=== PATIENT | female | born 1945 | race Caucasian/White ===

== ENCOUNTER 2024-10-09 09:31 | Emergency (ER) | payer MEDICARE, MEDICAID, SELFPAY ==
[2024-10-09 10:10] VITALS: BP 191/82; PULSE 76; RESP 18; TEMP 37; O2SAT 95; BMI 27.5
--- NOTE | 2024-10-09 10:17 | XR_ITS ---
Examination: CT maxillofacial, without intravenous contrast. 2-D sagittal reconstructions. 3-D reconstructions. Date and time of exam:October 09, 2019 5:11 AM INDICATIONS: Patient fell this morning with injury to the face, facial pain and bruising CTDI: vol (mGy):16.4 DLP: (mGycm):288 Technique: Multiple axial images of maxillofacial region, 3.0 mm slice thickness. 2-D sagittal and coronal reconstructions. 3-D reconstructions. Low dose protocols were performed. One or more of the following dose reduction techniques were used; automated exposure control, adjustment of the mA and/or KV according to patient size, use of iterative reconstruction technique. Findings: Soft tissue for head scalp swelling Frontal bone intact No acute nasal bone fracture No acute orbital rim fracture No depression zygomatic arches Pterygoid plates maxilla and the mandible intact IMPRESSION: No acute facial fracture.
--- NOTE | 2024-10-09 10:17 | XR_ITS ---
Examination: CT cervical spine without contrast 2-D sagittal reconstructions 2-D coronal reconstructions 3-D reconstructions. Exam date and time:October 09, 2019 5:11 AM INDICATIONS: Patient fell this morning with injury to the neck, neck pain CTDI:vol (mGy) 14.2 DLP: (mGycm) 321 Technique: Multiple 2 mm axial sections of the cervical spine have been obtained. The coronal and sagittal reconstructions have been obtained. 3-D reconstructions have been obtained. Low dose protocols were performed. One or more of the following dose reduction techniques were used; automated exposure control, adjustment of the mA and/or KV according to patient size, use of iterative reconstruction technique. Findings: Axial sections demonstrate intact base of the skull. C1 exhibit satisfactory relationship to the odontoid. No acute cervical vertebral body fracture seen. Alignment posterior spinous processes satisfactory. Impression: No acute cervical fracture.
--- NOTE | 2024-10-09 10:17 | XR_ITS ---
Examination: CT brain head without contrast. 2-D sagittal coronal reconstructions Date and time of exam:October 09, 2019 5:11 AM INDICATIONS: Patient fell this morning with injury to the head, head pain CTDI: vol (mGy):49.7 DLP: (mGycm):1039 Technique: Multiple CT axial sections of the brain have been obtained, 5 mm slice thickness. Contrast has not been administered. 2-D sagittal, coronal reconstructions have been obtained Low dose protocols were performed. One or more of the following dose reduction techniques were used; automated exposure control, adjustment of the mA and/or KV according to patient size, use of iterative reconstruction technique. Findings: No significant ventricular enlargement. Intra-axial or extra-axial hemorrhage density is not seen. No mass effect or midline shift Basal cisterns are not remarkable. Fourth ventricle is midline. Cranial vault intact. Impression: Negative for acute hemorrhage, mass effect or midline shift
--- NOTE | 2024-10-09 10:18 | PD.EDFALL ---
ED Fall Injury RME/HPI General Chief Complaint: Fall Stated Complaint: FACIAL TRAUMA Time Seen by Provider: 10/09/24 10:19 Source: patient Arrival date/time: 10/09/24 09:31 79-year-old female with a history of hyperlipidemia, hypothyroidism, hypertension presents to the emergency room with a chief complaint of a headache, neck pain, facial bruising and pain after a fall that occurred last night around 11 PM. Patient states she was going down her steps tripped and hit her head on pavement. Mode of arrival: ambulatory Limitations: no limitations Related Data Home Medications ?Medication ?Instructions ?Recorded ?Confirmed allopurinol 300 mg tablet 300 mg PO QDAY 09/14/23 01/28/24 atorvastatin 10 mg tablet 10 mg PO QDAY 09/14/23 01/28/24 levothyroxine 13 mcg capsule 13 mcg PO QDAY 09/14/23 01/28/24 losartan 100 mg tablet 100 mg PO QDAY 09/14/23 01/28/24 nadolol 20 mg tablet 20 mg PO QDAY 09/14/23 01/28/24 Previous Rx's ?Medication ?Instructions ?Recorded meloxicam 7.5 mg tablet 7.5 mg PO BID #45 tabs 09/14/23 Allergies Allergy/AdvReac Type Severity Reaction Status Date / Time No Known Allergies Allergy Verified 11/05/23 13:37 Review of Systems Review of Systems Systems Reviewed: All systems reviewed, normal except as documented Constitutional Constitutional: Reports system reviewed and no additional complaints, except as documented, Denies fatigue, Denies fever(s), Reports headache(s) and Denies weakness Eyes Eyes: Reports system reviewed and no additional complaints, except as documented, Denies blurry vision and Denies change in vision ENT Ears, Nose, Mouth, and Throat: Reports system reviewed and no additional complaints, except as documented, Denies otalgia, Reports headache(s), Denies nasal congestion, Reports neck pain, Denies throat swelling and Denies vertigo Cardiovascular Cardiovascular: Reports system reviewed and no additional complaints, except as documented, Denies chest pain, Denies dyspnea and Denies dyspnea on exertion Respiratory Respiratory: Reports system reviewed and no additional complaints, except as documented, Denies chest congestion, Denies cough, Denies dyspnea, Denies dyspnea on exertion and Denies wheezing Gastrointestinal Gastrointestinal: Reports system reviewed and no additional complaints, except as documented, Denies abdominal pain, Denies cramping, Denies nausea and Denies vomiting Genitourinary Genitourinary: Reports system reviewed and no additional complaints, except as documented Musculoskeletal Musculoskeletal: Reports system reviewed and no additional complaints, except as documented, Denies back pain and Reports neck pain Integumentary/Breasts Skin/Breast: Reports system reviewed and no additional complaints, except as documented and Denies wounds Neurologic Neurologic: Reports system reviewed and no additional complaints, except as documented, Denies confusion, Reports headache(s), Denies lack of coordination, Denies vertigo and Denies weakness Psychiatric Psychiatric: Reports system reviewed and no additional complaints, except as documented, Denies anxiety, Denies confusion, Denies depression, Denies paranoia, Denies suicidal ideation and Denies tactile hallucinations Endocrine Endocrine: Reports system reviewed and no additional complaints, except as documented and Denies fatigue Hematologic/Lymphatic Hematologic/Lymphatic: Reports system reviewed and no additional complaints, except as documented and Denies lymphadenopathy Allergic/Immunologic Allergic/Immunologic: Reports system reviewed and no additional complaints, except as documented, Denies throat swelling, Denies urticaria and Denies wheezing Past Medical History Social History SMOKING STATUS: Never smoker ED Exam General Limitations: Present no limitations General appearance: Present alert and in no apparent distress Head Head exam: Present atraumatic and normocephalic Expanded Head Exam Head exam physical: Present abrasion and contusion; Absent laceration, hematoma, raccoon eyes, Whipple's sign, tenderness of temporal artery, CSF rhinorrhea or CSF otorrhea Head image: 1. Facial contusion and bruising. Eye Eye exam: Present normal appearance, PERRL and EOMI ENT ENT exam: Present normal exam, normal oropharynx and mucous membranes moist Neck Neck exam: Present normal inspection, full ROM and trachea midline Chest Chest inspection: Present normal inspection and symmetric chest wall rise Respiratory Respiratory exam: Present normal lung sounds bilaterally Cardiovascular Cardiovascular exam: Present regular rate, normal rhythm and normal heart sounds Abdominal Exam Abdominal exam: Present soft and normal bowel sounds Extremities Exam Extremities exam: Present normal inspection and full ROM Back Exam Back exam: Present normal inspection and full ROM Neurological Exam Neurological exam: Present alert, oriented X3 and CN II-XII intact Psychiatric Psychiatric exam: Present normal affect and normal mood Skin Skin exam: Present warm, dry, intact and normal color Course Quality Measures none Orders Category Date Time Status CT cervical spine wo con Stat Exams 01/06/25 10:[address] facial bones wo con Stat Exams 10/09/24 10:[address] head/brain wo con Stat Exams 10/09/24 10:17 Completed Vital Signs Vital signs: Vital Signs Temperature 98.6 F 10/09/24 10:10 Pulse Rate 76 10/09/24 10:10 Respiratory Rate 18 10/09/24 10:10 Blood Pressure 191/82 H 10/09/24 10:10 Pulse Oximetry (%) 95 10/09/24 10:10 Oxygen Delivery Method Room Air 10/09/24 10:10 O2 saturation 95% within normal limits Fall MDM Narrative MDM Narrative:: 79-year-old female with a history of hyperlipidemia, hypothyroidism, hypertension presents to the emergency room with a chief complaint of a headache, neck pain, facial bruising and pain after a fall that occurred last night around 11 PM. Patient states she was going down her steps tripped and hit her head on pavement. Clinically the patient appears nontoxic and in no apparent distress. Physical examination shows a normal neurological exam. The patient is a GCS of 15 alert and oriented x 4. Pupils are PERRLA EOMs are intact patient states this occurred last night around 11 PM. Patient was able to ambulate and there is no dizziness or lightheadedness. Patient is complaining of pain and tenderness to her forehead as well as neck. CT of the head and brain were completed and was negative for acute hemorrhage mass effect or midline shift. Cervical CT was negative for acute fractures. Facial CT was negative for any fractures of the facial bones. Patient was discharged and educated to return to the emergency room for any evidence of worsening signs or symptoms patient was educated to follow-up with primary care provider in the next 24 to 48 hours Patient data External records reviewed:: [facility] previous records Clinical information provided by:: patient Social determinants that could affect healthcare access:: none Patient has the following chronic illnesses:: Hyperlipidemia, hypothyroidism, hypertension How is presenting disease/condition affected by chronic disease/condition?: uneffected by Evaluation data The following diagnostics were reviewed and interpreted by me:: lab results and radiology exam(s) Lab and/or radiology exams considered but not ordered:: Labs and radiology exams considered and ordered Interpretation Summary: CT head and brain-no acute hemorrhage mass effect or midline shift CT cervical-no acute cervical fracture. CT facial bones, no acute fractures Medications / Prescriptions Medications or Prescriptions considered but not ordered:: No medication given Medication administrations:: No medication given Consultations Consultation(s) initiated? (list below): No Diagnosis Fall Differential Diagnosis: concussion with loss of consciousness, concussion without loss of consciousness and other (Facial contusions/subarachnoid hemorrhage/facial bone fracture) Most likely diagnosis given after review of the tests above:: Facial contusions Admission Indicated Admission indicated?: not indicated Admission Request Was there a request for admission?: No Disposition Plan Disposition Plan: Discharge Discharge Attestation Discharge Attestation: The patient and all family members were given an opportunity to ask questions and understood the discharge instructions. Discharge instructions specifically effects, indications for sooner follow up or return to the emergency department, and the expected course of current diagnosis. Patient condition: Stable Discharge Plan Plan Patient Disposition: HOME (Self Care) Disposition Comment: Stable Prescriptions/Referrals Prescriptions/Med Rec: No Action atorvastatin 10 mg tablet 10 mg PO QDAY losartan 100 mg tablet 100 mg PO QDAY levothyroxine 13 mcg capsule 13 mcg PO QDAY allopurinol 300 mg tablet 300 mg PO QDAY nadolol 20 mg tablet 20 mg PO QDAY meloxicam 7.5 mg tablet 7.5 mg PO BID Qty: 45 3RF Referrals: July Walker MD [Primary Care Provider] - In 1 week Problem List Clinical Impression: Facial trauma Patient/Caregiver Discharge Instructions Additional Instructions: Please follow-up with your primary care provider in the next [address] of your head/brain, neck, and facial bones were all negative for any acute findings. For any evidence of worsening signs or symptoms please return to the emergency room immediately Print Language: Uzbek Stand Alone Forms: [facility] Award Info., Patient Portal Info Letter PA/FINANCIAL PLANNING ANALYST Supervising Physician PA/RHIANNON Supervising Physician: Dr Contreras
== END 2024-10-09 11:45 | disposition home or self-care (01) ==
PROVIDERS: Emergency Provider Emergency Medicine; PCP Family Medicine
DX: S00.83XA Contusion of other part of head, initial encounter (principal); S19.9XXA Unspecified injury of neck, initial encounter; S09.90XA Unspecified injury of head, initial encounter; W10.9XXA Fall (on) (from) unspecified stairs and steps, initial encounter; Y92.480 Sidewalk as the place of occurrence of the external cause
CPT/HCPCS: 70450; 70486; 72125; 99284

== ENCOUNTER → 2024-11-13 | Outpatient (CLI) | payer MEDICARE, MEDICAID, SELFPAY ==
[2024-11-13 12:15] LABS: Collection Type, Urine Clean Catch
[2024-11-13 13:21] LABS: Basophils # (Auto) 0.1 Thou/mm3 (0.0-0.2); Basophils % (Auto) 1 % (0-2.5); Eosinophils # (Auto) 0.2 Thou/mm3 (0.0-0.5); Eosinophils % (Auto) 3 % (0-10); Hemoglobin 13.7 g/dL (12.0-16.0); Immature Granulocytes % (Auto) 0 % (0-0); Immature Granulocytes Auto 0.02 Thou/mm3 (0.00-0.00); Lymphocytes # (Auto) 1.7 Thou/mm3 (1.0-4.8); Lymphocytes % (Auto) 24 % (10-50); Mean Corpuscular Hemoglobin 34.7 pg (25.0-35.0); Mean Corpuscular Volume 94 fL (80-100); Monocytes # (Auto) 0.4 Thou/mm3 (0.0-0.8); Monocytes % (Auto) 6 % (0-12); Neutrophils # (Auto) 4.7 Thou/mm3 (1.8-7.7); Neutrophils % (Auto) 66 % (37-80); Nucleated Red Blood Cell % 0 /100 WBC (0); Platelet Count 250 Thou/mm3 (140-440); RDW Standard Deviation 46.3 fL (36.4-46.3); Red Blood Count 3.95 Miln/mm3 (4.00-5.20); White Blood Count 7.1 Thou/mm3 (3.6-11.0)
[2024-11-13 13:22] LABS: Bilirubin,Urine Negative (Negative); Blood,Urine Negative (Negative); Clarity,Urine Clear (Clear/Hazy); Color,Urine Lt-Yellow (Lt Yel-Yel); Glucose, Urine Negative (Negative); Ketones,Urine Negative (Negative); Leukocyte Esterase,Urine Negative (Negative); Nitrite,Urine Negative (Negative); PH,Urine 5.5 (5.0-7.0); Protein,Urine Negative (Neg - Trace); RBC,Urine 1 /hpf (0-3); Specific Gravity,Urine 1.016 (1.001-1.035); Squamous Epithelial Cell,Urine 1 /hpf (0-5); Urobilinogen,Urine Negative mg/dL (0.0-1.0); WBC,Urine 1 /hpf (0-5)
[2024-11-13 13:30] LABS: Alanine Aminotransferase 18 U/L (10-49); Albumin, Serum 4.6 gm/dL (3.4-4.8); Albumin/Globulin Ratio 1.9 (1.2-2.2); Alkaline Phosphatase 118 U/L (46-116); Anion Gap 4 (7-16); Aspartate Amino Transferase 22 U/L (0-34); BUN/Creatinine Ratio 19 Ratio (12-20); Bilirubin,Total 0.4 mg/dL (0.3-1.2); Blood Urea Nitrogen 17 mg/dL (9-23); Calcium 9.5 mg/dL (8.3-10.6); Calcium (Corrected) 9.5 mg/dL (8.5-10.1); Carbon Dioxide 27.7 mMol/L (20.0-31.0); Chloride 110 mMol/L (98-107); Cholesterol 182 mg/dL (132-200); Creatinine (Component) 0.9 mg/dL (0.6-1.3); Free T4 (Free Thyroxine) 1.18 ng/dL (0.89-1.76); Globulin 2.4 gm/dL (2.3-3.5); Glucose 89 mg/dL (74-106); HDL Cholesterol 60 mg/dL (40-60); LDL Cholesterol,Calculated 82 mg/dL (0-130); Osmolality,Calculated 283 (275-295); Potassium 4.6 mMol/L (3.4-5.1); Sodium 142 mMol/L (136-145); Thyroid Stimulating Hormone 1.58 uIU/mL (0.55-4.78); Triglycerides 198 mg/dL (30-150); eGFR > 60 See Note
== END | disposition home or self-care (01) ==
PROVIDERS: PCP Family Medicine; Referring Provider Family Medicine; Visit Provider Family Medicine
DX: I10 Essential (primary) hypertension (principal); E03.9 Hypothyroidism, unspecified
CPT/HCPCS: 36415; 80053; 80061; 81001; 84439; 84443; 85025

== ENCOUNTER 2025-01-07 11:37 | Emergency (ER) | payer OTHER, MEDICAID, SELFPAY ==
[2025-01-07] VITALS (8 sets, daily range): BP systolic 165–200; BP diastolic 67–95; PULSE 64–82; RESP 18–30; TEMP 37.2–38.8; O2SAT 94–95; BMI 27.5
--- NOTE | 2025-01-07 12:04 | EDRME_ITS ---
Rapid Medical Screening Exam [facility] Arrival date/time: 01/07/25 11:37 79-year-old female with a history of hyperlipidemia presents to the emergency room with a chief complaint of a sore throat, body aches, and frequent falls. Patient states she has had multiple falls in the last month. Patient states her last fall was 1 week ago and states she hit her head on concrete but did not come to the emergency room to get checked out. I have greeted and performed a focused initial assessment of this patient. A comprehensive ED assessment and evaluation of the patient, analysis of all test results, and completion of the medical decision making process will be conducted by additional ED providers. Chief Complaint: Fall Time Seen by Provider: 01/07/25 11:54 Vital signs: Vital Signs Temperature 99.6 F 01/07/25 11:50 Pulse Rate 82 01/07/25 11:50 Respiratory Rate 20 01/07/25 11:50 Blood Pressure 184/77 H 01/07/25 11:50 Pulse Oximetry (%) 95 01/07/25 11:50 Oxygen Delivery Method Room Air 01/07/25 11:50 Vital signs reviewed by provider: Yes
--- NOTE | 2025-01-07 12:10 | EKG_ITS ---
[facility] Test Date: 2025-01-07 Pat Name: JUAN LIM Department: Room: - Gender: Female Commissioned Police Officer: : 1945 Requested By: Walter Patrick Order Number: [id number] Reading MD: Walter Patrick Measurements Intervals [place] Rate: 85 P: 35 OR: 156 QRS: -37 QRSD: 84 T: 56 QT: 333 QTc: 397 Interpretive Statements SINUS RHYTHM LEFT AXIS DEVIATION [QRS AXIS < -30] POSSIBLE ANTERIOR MYOCARDIAL INFARCTION , PROBABLY OLD [30 ms Q WAVE IN V3/V4, OR R < 0.2 mV IN V4] No previous ECG available for comparison /store/[email or web address]/[id number].pdf
--- NOTE | 2025-01-07 12:10 | XR_ITS ---
Examination: CT brain head without contrast. 2-D sagittal coronal reconstructions Date and time of exam:January 07, 2025 1241 hrs. Indications: Frequent falls the last month with head pain CTDI: vol (mGy):48.4 DLP: (mGycm):1027 Technique: Multiple CT axial sections of the brain have been obtained, 5 mm slice thickness. Contrast has not been administered. 2-D sagittal, coronal reconstructions have been obtained Low dose protocols were performed. One or more of the following dose reduction techniques were used; automated exposure control, adjustment of the mA and/or KV according to patient size, use of iterative reconstruction technique. Findings: No significant ventricular enlargement. Intra-axial or extra-axial hemorrhage density is not seen. No mass effect or midline shift Basal cisterns are not remarkable. Fourth ventricle is midline. Cranial vault intact. Impression: Negative for acute hemorrhage, mass effect or midline shift
[2025-01-07 12:26] LABS: Basophils % (Auto) 0 % (0-2.5); Eosinophils # (Auto) 0.1 Thou/mm3 (0.0-0.5); Eosinophils % (Auto) 1 % (0-10); Hematocrit 38.9 % (36.0-46.0); Hemoglobin 13.8 g/dL (12.0-16.0); Immature Granulocytes % (Auto) 0 % (0-0); Immature Granulocytes Auto 0.02 Thou/mm3 (0.00-0.00); Lymphocytes % (Auto) 11 % (10-50); Mean Corpuscular HGB Conc 35.5 g/dl (31.0-37.0); Mean Corpuscular Hemoglobin 31.8 pg (25.0-35.0); Mean Corpuscular Volume 90 fL (80-100); Monocytes # (Auto) 0.9 Thou/mm3 (0.0-0.8); Monocytes % (Auto) 10 % (0-12); Neutrophils # (Auto) 7.2 Thou/mm3 (1.8-7.7); Neutrophils % (Auto) 78 % (37-80); Nucleated Red Blood Cell % 0 /100 WBC (0); Platelet Count 188 Thou/mm3 (140-440); RDW Standard Deviation 45.6 fL (36.4-46.3); Red Blood Count 4.34 Miln/mm3 (4.00-5.20); White Blood Count 9.2 Thou/mm3 (3.6-11.0)
[2025-01-07 12:35] LABS: Strep A Rapid Negative (Negative)
[2025-01-07 12:45] LABS: B-Type Natriuretic Peptide 35 pg/mL (0-100)
[2025-01-07 12:46] LABS: Alanine Aminotransferase 21 U/L (10-49); Albumin, Serum 4.5 gm/dL (3.4-4.8); Albumin/Globulin Ratio 1.7 (1.2-2.2); Alkaline Phosphatase 115 U/L (46-116); Anion Gap 8 (7-16); Aspartate Amino Transferase 25 U/L (0-34); BUN/Creatinine Ratio 14 Ratio (12-20); Bilirubin,Total 0.4 mg/dL (0.3-1.2); Blood Urea Nitrogen 13 mg/dL (9-23); Calcium 9.4 mg/dL (8.3-10.6); Calcium (Corrected) 9.4 mg/dL (8.5-10.1); Carbon Dioxide 26.5 mMol/L (20.0-31.0); Chloride 106 mMol/L (98-107); Creatinine (Component) 0.9 mg/dL (0.6-1.3); Globulin 2.7 gm/dL (2.3-3.5); Glucose 105 mg/dL (74-106); Magnesium 1.7 mg/dL (1.6-2.6); Osmolality,Calculated 279 (275-295); Potassium 4.1 mMol/L (3.4-5.1); Sodium 140 mMol/L (136-145); Total Protein 7.2 gm/dL (5.7-8.2); Troponin I < 0.020 ng/mL (0.0-0.045); eGFR > 60 See Note
--- NOTE | 2025-01-07 14:10 | PD.EDADULT ---
ED General RME/HPI General Chief complaint: Fall Stated complaint: FREQUENT FALLS HEAD PAIN Time Seen by Provider: 01/07/25 11:54 Arrival date/time: 01/07/25 11:37 CC: Get checked out HPI patient states she has had 4 falls in the last several months the last fall was approximately 1 week ago. The patient is now here stating that she wants to check out her eye bone while pointing to her left thigh. Patient denies LOC or LOC. The patient denies smoking, alcohol, street drugs. Patient states Dr Hodge is her PCP. Patient is mildly confused stating that she had 2 falls in the last several months and then again states that she has had 4 falls in the last several months. Patient is clear that all falls of taken place on the paved walkway or the stairs in her house. Patient denies any LOC or ALOC. Currently the patient has no chest pain no shortness of breath no difficulty breathing. RME / HPI RME / HPI narrative: 01/07/25 11:37 79-year-old female with a history of hyperlipidemia presents to the emergency room with a chief complaint of a sore throat, body aches, and frequent falls. Patient states she has had multiple falls in the last month. Patient states her last fall was 1 week ago and states she hit her head on concrete but did not come to the emergency room to get checked out. I have greeted and performed a focused initial assessment of this patient. A comprehensive ED assessment and evaluation of the patient, analysis of all test results, and completion of the medical decision making process will be conducted by additional ED providers. Related Data Home Medications ?Medication ?Instructions ?Recorded ?Confirmed allopurinol 300 mg tablet 300 mg PO QDAY 09/14/23 01/28/24 atorvastatin 10 mg tablet 10 mg PO QDAY 09/14/23 01/28/24 levothyroxine 13 mcg capsule 13 mcg PO QDAY 09/14/23 01/28/24 losartan 100 mg tablet 100 mg PO QDAY 09/14/23 01/28/24 nadolol 20 mg tablet 20 mg PO QDAY 09/14/23 01/28/24 Previous Rx's ?Medication ?Instructions ?Recorded meloxicam 7.5 mg tablet 7.5 mg PO BID #45 tabs 09/14/23 Allergies Allergy/AdvReac Type Severity Reaction Status Date / Time Sulfa (Sulfonamide Allergy Mild Hives Verified 01/07/25 11:41 Antibiotics) Review of Systems Review of Systems Narrative Review of Systems: GEN: No fever, no chills, no weight loss EYES: No discharge, no visual changes, no pain HEENT: No ear pain, no congestion, no sore throat PULM: No shortness of breath, no cough, no congestion CV: No chest pain, no dyspnea on exertion, no palpitations GI: No nausea, no vomiting, no diarrhea, no pain, no constipation : No frequency, no urgency, no dysuria MUSC/SKEL: No joint pain, no back pain SKIN: No rash PSYCH: No hallucinations, no depression HEME/LYMPH: No easy bleeding or bruising tendencies NEURO: No weakness, no headache Past Medical History Social History SMOKING STATUS: Never smoker ED Exam Narrative Physical exam: [General: Not in any acute distress Head normocephalic, no step-offs hematoma induration ulceration crepitus ecchymosis or depressions. HEENT: Eyes pupils are PERRLA EOMs are intact mouth pink moist membranes uvula is midline swallow symmetrical phonation is normal. Nose no rhinorrhea, no raccoon's eyes or hutson signs. All other subsystems of HEENT are within acceptable limits Neck is supple nontender, no JVD Chest equal chest rise nontender to palpation Respiratory: Clear to auscultation no wheezes crackles or rubs CV: Rate rhythm is regular no murmurs rubs or clicks Abdomen is soft nontender no masses positive bowel sounds all 4 quadrants Back: No CVA tenderness no spinous process tenderness from cervical spine thoracic and lumbar spine Skin: Intact no petechiae rash induration ulceration or crepitus Extremities: Moving all extremity against resistance cap refill less than 2 seconds neurosensory intact Neuro: Awake alert oriented x2, person and place, Glascow coma 15 no focal deficits] Course Course Course Narrative: At 1514 patient got new vital signs which included a fever of 101.3. At this time we will determine if she has influenza A if not we will initiate sepsis protocol. Quality Measures none Orders Category Date Time Status Bedside COVID-19 Antigen Test NOW Care 01/07/25 12:03 Active Bedside Influenza A&B Antigen Test NOW Care 01/07/25 12:03 Completed Bedside Influenza A&B Antigen Test NOW Care 01/07/25 15:15 Completed EKG (ED ONLY) *Do not use* NOW Care 01/07/25 12:[address] head/brain wo con Stat Exams 01/07/25 12:10 Completed EKG (ED Only) Stat Exams 01/07/25 12:10 Draft B-Type Natriuretic Peptide Stat Lab 01/07/25 12:19 Completed CBC Stat Lab 01/07/25 12:19 Completed Comprehensive Metabolic Panel Stat Lab 01/07/25 12:19 Completed Drug Screen,Urine Stat Lab 01/07/25 14:29 Completed Free T4 (Free Thyroxine) Stat Lab 01/07/25 12:19 Completed Lactic Acid [Lactate (Lactic Acid)] Stat Lab 01/07/25 15:32 Completed Magnesium Stat Lab 01/07/25 12:19 Completed Procalcitonin Stat Lab 01/07/25 15:32 Completed Strep A Rapid Stat Lab 01/07/25 12:19 Completed Thyroid Stimulating Hormone Stat Lab 01/07/25 12:19 Completed Troponin I Stat Lab 01/07/25 12:19 Completed Urinalysis Stat Lab 01/07/25 14:29 Completed Acetaminophen Tab [Tylenol Tab] Med 01/07/25 15:15 Discontinued 650 mg PO X1 ONE hydrALAZINE INJ [Apresoline Inj] Med 01/07/25 15:38 Discontinued 20 mg IV X1 ONE Vital Signs Vital signs: Vital Signs Temperature 99.6 F 01/07/25 11:50 Pulse Rate 82 01/07/25 11:50 Respiratory Rate 20 01/07/25 11:50 Blood Pressure 184/77 H 01/07/25 11:50 Pulse Oximetry (%) 95 01/07/25 11:50 Oxygen Delivery Method Room Air 01/07/25 11:50 [facility] Patient data External records reviewed:: [facility] previous records Clinical information provided by:: patient Social determinants that could affect healthcare access:: none Patient has the following chronic illnesses:: Hypothyroidism hyperlipidemia How is presenting disease/condition affected by chronic disease/condition?: uneffected by Evaluation data The following diagnostics were reviewed and interpreted by me:: lab results, radiology exam(s) and EKG tracing(s) Lab and/or radiology exams considered but not ordered:: EKG performed at 1216 shows ventricular rate of 85 IN interval 156 QRS of 8 4 QTc of 375 this is normal sinus rhythm left axis deviation no significant ST depression or elevation. CBC shows no acute leukocytosis anemia thrombocytopenia CMP shows no acute electrolyte imbalances renal impairment transaminitis or T. bili elevation Troponin is negative BNP is negative Strep is negative Free T4, TSH are unremarkable Patient is influenza A and B positive. Procalcitonin is within acceptable limits. Interpretation Summary: Patient's labs are essentially unremarkable the patient is mildly confused half correcting herself and a half not I am concerned that the patient may be developing age-related neurologic issues that have as of yet not been diagnosed. There is no acute evidence of trauma. Reviewed the vital signs showed the patient has remained stable throughout her visit the emergency room and there is been no deterioration in neurologic status. Patient has been observed multiple times walking in the hallways of the ER while going to and from restroom etc. Medications Medications considered but not ordered:: None none Medication administrations:: Medication Administration History Discontinued Medications Acetaminophen (Acetaminophen 325 Mg Tablet) 650 mg PO X1 ONE Stop: 01/07/25 15:16 Last Admin: 01/07/25 15:21 Dose: 650 mg Documented By: ELBERT Hydralazine HCl (Hydralazine Inj 20 Mg/Ml Vial) 20 mg IV X1 ONE Stop: 01/07/25 15:39 Last Admin: 01/07/25 16:07 Dose: Not Given Documented By: ELBERT Non-Admin Reason: Discontinued None Consultations Consultation(s) initiated? (list below): No Diagnosis Differential Diagnosis ED Complaint MDM: Intracranial hemorrhage electrolyte imbalances dehydration Most likely diagnosis given after review of the tests above:: Influenza A and B recurrent falls Admission Indicated Admission indicated?: not indicated Explain why admission is indicated or not indicated:: Stable for outpatient follow-up Admission Request Was there a request for admission?: No Disposition Plan Disposition Plan: Discharge Discharge Attestation Discharge Attestation: The patient and all family members were given an opportunity to ask questions and understood the discharge instructions. Discharge instructions specifically effects, indications for sooner follow up or return to the emergency department, and the expected course of current diagnosis. Patient condition: Stable Medical Decision Making Differential Diagnosis Differential Diagnosis: Intracranial hemorrhage electrolyte imbalances dehydration Lab Data 01/07/25 12:19 01/07/25 12:19 Labs: Lab Results 01/07/25 01/07/25 01/07/25 Range/Units 12:19 14:29 15:32 WBC 9.2 (3.6-11.0) Thou/mm3 RBC 4.34 (4.00-5.20) Miln/mm3 Hgb 13.8 (12.0-16.0) g/dL Hct 38.9 (36.0-46.0) % MCV 90 (80-100) fL MCH 31.8 (25.0-35.0) pg MCHC 35.5 (31.0-37.0) g/dl RDW Std Deviation 45.6 (36.4-46.3) fL Plt Count 188 (140-440) Thou/mm3 Neut % (Auto) 78 (37-80) % Lymph % (Auto) 11 (10-50) % [place] % (Auto) 10 (0-12) % Eos % (Auto) 1 (0-10) % Baso % (Auto) 0 (0-2.5) % Neut # (Auto) 7.2 (1.8-7.7) Thou/mm3 Lymph # (Auto) 1.0 (1.0-4.8) Thou/mm3 [place] # (Auto) 0.9 H (0.0-0.8) Thou/mm3 Eos # (Auto) 0.1 (0.0-0.5) Thou/mm3 Baso # (Auto) 0.0 (0.0-0.2) Thou/mm3 Immature Gran # (Auto) 0.02 H (0.00-0.00) Thou/mm3 Absolute Nucleated RBC 0.00 (0.00-0.00) Thou/mm3 Immature Gran % 0 (0-0) % Nucleated RBC % 0 (0) /100 WBC Sodium 140 (136-145) mMol/L Potassium 4.1 (3.4-5.1) mMol/L Chloride 106 (98-107) mMol/L Carbon Dioxide 26.5 (20.0-31.0) mMol/L Anion Gap 8 (7-16) BUN 13 (9-23) mg/dL Creatinine 0.9 (0.6-1.3) mg/dL Estim Creat Clear Calc 55.0 L (>60) mL/min eGFR > 60 (60 - ) See Note BUN/Creatinine Ratio 14 (12-20) Ratio Glucose 105 (74-106) mg/dL Calculated Osmolality 279 (275-295) Lactic Acid 0.7 (0.4-2.0) mMol/L Calcium 9.4 (8.3-10.6) mg/dL Corrected Calcium 9.4 (8.5-10.1) mg/dL Magnesium 1.7 (1.6-2.6) mg/dL Total Bilirubin 0.4 (0.3-1.2) mg/dL AST 25 (0-34) U/L ALT 21 (10-49) U/L Alkaline Phosphatase 115 (46-116) U/L Troponin I < 0.020 (0.0-0.045) ng/mL B-Natriuretic Peptide 35 (0-100) pg/mL Total Protein 7.2 (5.7-8.2) gm/dL Albumin 4.5 (3.4-4.8) gm/dL Globulin 2.7 (2.3-3.5) gm/dL Albumin/Globulin Ratio 1.7 (1.2-2.2) Procalcitonin 0.06 (0.0-0.49) ng/ml TSH 1.61 (0.55-4.78) uIU/mL Free T4 1.22 (0.89-1.76) ng/dL Ur Collection Type Clean Catch Urine Color Yellow (Lt Yel-Yel) Urine Clarity Turbid A (Clear/Hazy) Urine pH 6.5 (5.0-7.0) Ur Specific [place] 1.024 (1.001-1.035) Urine Protein Trace (Neg - Trace) Urine Glucose (UA) Negative (Negative) Urine Ketones Negative (Negative) Urine Blood Trace (Negative) Urine Nitrite Negative (Negative) Urine Bilirubin Negative (Negative) Urine Urobilinogen (Auto) Negative (0.0-1.0) mg/dL Ur Leukocyte Esterase Positive (Negative) Urine RBC 6 H (0-3) /hpf Urine WBC 4 (0-5) /hpf Ur Squamous Epith Cells 7 H (0-5) /hpf Urine Bacteria None (None) Urine Opiates Screen Negative (Negative) Urine Fentanyl Screen Negative (Negative) Ur Barbiturates Screen Negative (Negative) U Amphetamin/Meth Scrn Negative (Negative) U Benzodiazepines Scrn Negative (Negative) U Cocaine Metab Screen Negative (Negative) U Marijuana (THC) Screen Negative (Negative) Group A Strep Rapid Negative (Negative) Discharge Plan Plan Patient Disposition: HOME (Self Care) Patient condition on transfer: Stable Prescriptions/Referrals Prescriptions/Med Rec: No Action atorvastatin 10 mg tablet 10 mg PO QDAY losartan 100 mg tablet 100 mg PO QDAY levothyroxine 13 mcg capsule 13 mcg PO QDAY allopurinol 300 mg tablet 300 mg PO QDAY nadolol 20 mg tablet 20 mg PO QDAY meloxicam 7.5 mg tablet 7.5 mg PO BID Qty: 45 3RF Referrals: Rodrigo Schumacher MD [Physician] - In 1 week No Primary/Family,Physician [Primary Care Provider] - In 1 week Problem List Clinical Impression: Recurrent falls, Influenza A, Influenza B, Fever Patient/Caregiver Discharge Instructions Education Materials: Fall Prevention Assessing Risk, Preventing Falls Moving Safely ..., ED Influenza (Adult) Additional Instructions: Rest, drink plenty of water, take Tylenol or ibuprofen for fever. Avoid walking in unsafe areas. If necessary use a walker. Follow-up with your primary care provider. Consider home health assessment for fall risk. Print Language: Sami Stand Alone Forms: [facility] Award Info., Patient Portal Info Letter PA/RHIANNON Supervising Physician PA/INSPECTOR [employer] CLIPPER Supervising Physician: Juan Wills ENP
[2025-01-07 14:31] LABS: Collection Type, Urine Clean Catch
[2025-01-07 14:32] LABS: Bilirubin,Urine Negative (Negative); Blood,Urine Trace (Negative); Clarity,Urine Turbid (Clear/Hazy); Color,Urine Yellow (Lt Yel-Yel); Glucose, Urine Negative (Negative); Ketones,Urine Negative (Negative); Leukocyte Esterase,Urine Positive (Negative); Nitrite,Urine Negative (Negative); PH,Urine 6.5 (5.0-7.0); Protein,Urine Trace (Neg - Trace); RBC,Urine 6 /hpf (0-3); Specific Gravity,Urine 1.024 (1.001-1.035); Squamous Epithelial Cell,Urine 7 /hpf (0-5); Urobilinogen,Urine Negative mg/dL (0.0-1.0); WBC,Urine 4 /hpf (0-5)
[2025-01-07 14:39] LABS: Amphetamine/Methamp Scrn,U Negative (Negative); Barbiturate Screen,Urine Negative (Negative); Benzodiazepines Screen,Urine Negative (Negative); Benzoylecgonine Screen, Ur Negative (Negative); Fentanyl Screen,Urine Negative (Negative); Opiate Screen,Urine Negative (Negative); THC Screen,Urine Negative (Negative)
[2025-01-07 14:49] LABS: Free T4 (Free Thyroxine) 1.22 ng/dL (0.89-1.76); Thyroid Stimulating Hormone 1.61 uIU/mL (0.55-4.78)
[2025-01-07] MEDS: ACETAMINOPHEN 325 MG TABLET 650 MG PO (15:21)
[2025-01-07 15:35] LABS: Lactate (Lactic Acid) 0.7 mMol/L (0.4-2.0)
[2025-01-07 16:05] LABS: Procalcitonin 0.06 ng/ml (0.0-0.49)
== END 2025-01-07 16:51 | disposition home or self-care (01) ==
PROVIDERS: Nurse Practitioner Family; Registered Nurse General Practice; Emergency Provider Family Medicine
DX: J11.1 Influenza due to unidentified influenza virus with other respiratory manifestations (principal); R29.6 Repeated falls
CPT/HCPCS: 36415; 70450; 80053; 80307; 81001; 83605; 83735; 83880; 84145; 84439; 84443; 84484; 85025; 87400; 87651; 87811; 93005; 99284; A9270

== ENCOUNTER → 2025-08-28 | Outpatient (CLI) | payer OTHER, MEDICAID, SELFPAY ==
[2025-08-28 12:05] LABS: Basophils # (Auto) 0.1 Thou/mm3 (0.0-0.2); Basophils % (Auto) 1 % (0-2.5); Eosinophils # (Auto) 0.1 Thou/mm3 (0.0-0.5); Eosinophils % (Auto) 2 % (0-10); Hematocrit 43.9 % (36.0-46.0); Hemoglobin 14.5 g/dL (12.0-16.0); Immature Granulocytes Auto 0.03 Thou/mm3 (0.00-0.00); Lymphocytes # (Auto) 1.8 Thou/mm3 (1.0-4.8); Lymphocytes % (Auto) 23 % (10-50); Mean Corpuscular HGB Conc 33.0 g/dl (31.0-37.0); Mean Corpuscular Hemoglobin 30.5 pg (25.0-35.0); Mean Corpuscular Volume 92 fL (80-100); Monocytes # (Auto) 0.6 Thou/mm3 (0.0-0.8); Monocytes % (Auto) 7 % (0-12); Neutrophils # (Auto) 5.5 Thou/mm3 (1.8-7.7); Neutrophils % (Auto) 68 % (37-80); Nucleated Red Blood Cell # 0.00 Thou/mm3 (0.00-0.00); Nucleated Red Blood Cell % 0 /100 WBC (0); Platelet Count 268 Thou/mm3 (140-440); RDW Standard Deviation 47.7 fL (36.4-46.3); Red Blood Count 4.76 Miln/mm3 (4.00-5.20); White Blood Count 8.2 Thou/mm3 (3.6-11.0)
[2025-08-28 12:30] LABS: Alanine Aminotransferase 25 U/L (10-49); Albumin, Serum 4.8 gm/dL (3.4-4.8); Albumin/Globulin Ratio 2.0 (1.2-2.2); Anion Gap 8 (7-16); Aspartate Amino Transferase 22 U/L (0-34); BUN/Creatinine Ratio 24 Ratio (12-20); Bilirubin,Total 0.4 mg/dL (0.3-1.2); Blood Urea Nitrogen 22 mg/dL (9-23); Calcium 10.2 mg/dL (8.3-10.6); Calcium (Corrected) 10.2 mg/dL (8.5-10.1); Carbon Dioxide 27.1 mMol/L (20.0-31.0); Chloride 108 mMol/L (98-107); Creatinine (Component) 0.9 mg/dL (0.6-1.3); Globulin 2.4 gm/dL (2.3-3.5); Glucose 86 mg/dL (74-106); Osmolality,Calculated 287 (275-295); Potassium 4.4 mMol/L (3.4-5.1); Sodium 143 mMol/L (136-145); Total Protein 7.2 gm/dL (5.7-8.2); eGFR > 60 See Note
[2025-08-28 12:47] LABS: Alkaline Phosphatase 108 U/L (46-116); Cardiac Risk Estimate 3.0 RATIO (3.7-5.6); Cholesterol 181 mg/dL (132-200); Free T4 (Free Thyroxine) 1.37 ng/dL (0.89-1.76); HDL Cholesterol 61 mg/dL (40-60); LDL Cholesterol,Calculated 96 mg/dL (0-130); Thyroid Stimulating Hormone 2.70 uIU/mL (0.55-4.78); Triglycerides 121 mg/dL (30-150)
== END | disposition home or self-care (01) ==
LOC: COPL 11:30
PROVIDERS: PCP Family Medicine; Referring Provider Family Medicine; Visit Provider Family Medicine
DX: I10 Essential (primary) hypertension (principal); E03.9 Hypothyroidism, unspecified; E78.2 Mixed hyperlipidemia
CPT/HCPCS: 36415; 80053; 80061; 84439; 84443; 85025